=== PATIENT | female | born 1950 | race Caucasian/White ===

== ENCOUNTER 2017-07-16 11:44 | Emergency (ER) | payer MEDICARE, OTHER ==
[~2017-07-16] VITALS: Ht 157.5 cm; Wt 70.8 kg
[2017-07-16] MEDS ORDERED: IPRATRPIUM/ALBUTEROL 0.5/2.5MG 3 ML NEBU. ONE ×2 (11:48→11:53)
[2017-07-16] MEDS ORDERED: ALBUTEROL SULFATE 2.5 MG/3 ML NEBU. NEB ONE (12:00)
[2017-07-16 12:07] LABS: BASO # 0.1 x10^3/uL (0.0-0.2); BASO % 1 % (0-3); EOS % 1 % (0-3); HEMATOCRIT 49.9 % (36.0-47.0); LYMPH # 1.5 x10^3/uL (1.0-4.8); LYMPH % 19 % (24-48); MEAN CORPUSCULAR HEMOGLOBIN 33 pg (25-35); MEAN CORPUSCULAR HGB CONC 34 g/dL (31-37); MEAN CORPUSCULAR VOLUME 95 fL (79-100); MONO # 0.9 x10^3/uL (0.0-1.1); MONO % 10 % (0-9); NEUT # 5.7 x10^3uL (1.8-7.7); NEUT % 70 % (31-73); PLATELET COUNT 194 x10^3/uL (140-400); RED BLOOD COUNT 5.24 x10^6/uL (3.50-5.40); WHITE BLOOD COUNT 8.2 x10^3/uL (4.0-11.0)
[2017-07-16 12:16] LABS: CALCIUM 9.2 mg/dL (8.5-10.1); CREATININE 0.9 mg/dL (0.6-1.0); GFR 62.8
[2017-07-16] MEDS ORDERED: methylPREDNISolone SOD SUCC PF 40 MG/ML VIAL. IV ONE (12:20)
--- NOTE | 2017-07-16 12:38 | RAD ---
AP chest. History: Short of breath AP view was taken of the chest. There is a vessel versus a small nodule in the suprahilar lung on the right which is a slight change compared to the old study. Close interval follow-up film would be of benefit or CT. Lungs are clear. Heart is normal in size. There is no pleural effusion. Impression: 1. Possible superhilar nodule on the right, follow-up study or CT could be of benefit. 2. No infiltrates.
[2017-07-16] MEDS ORDERED: IV NORMAL SALINE 1,000ML 1,000 ML IV ONE (12:45)
[2017-07-16] MEDS ORDERED: IV NORMAL SALINE 50ML 50 ML ONE (12:55)
[2017-07-16] MEDS ORDERED: cefTRIAXone SODIUM 1 GM VIAL IV ONE (12:55)
[2017-07-16 13:01] LABS: BGAS PH 7.38 (7.35-7.45)
--- NOTE | 2017-07-16 13:17 | PHYS DOC ---
Past History Past Medical History: No Pertinent History Past Surgical History: No Surgical History Additional Smoking Information: Patient smoke 1 pack + a day Alcohol Use: None Drug Use: None Adult General Chief Complaint Chief Complaint: SHORTNESS OF BREATH HPI HPI Patient is a 67 year old F who presents with worsening shortness of breath over the past 2-3 weeks with significant worsening over the past 2 days. Luz is a daily smoker and does use inhalers on a regular basis. She has been using her rescue inhaler 3-4 times daily over the past 2 days and feels that her symptoms are progressively worsening. She denies pain at this time. She denies pain with any activity. She does feel her symptoms are significantly worse with minimal exertion. She denies swelling or weight gain. She has no history of heart failure. Review of Systems Review of Systems Constitutional: Denies fever or chills [] Eyes: Denies change in visual acuity, redness, or eye pain [] HENT: Denies nasal congestion or sore throat [] Respiratory: Negative except history of present illness Cardiovascular: No additional information not addressed in HPI [] GI: Denies abdominal pain, nausea, vomiting, bloody stools or diarrhea [] : Denies dysuria or hematuria [] Musculoskeletal: Denies back pain or joint pain [] Integument: Denies rash or skin lesions [] Neurologic: Denies headache, focal weakness or sensory changes [] Endocrine: Denies polyuria or polydipsia [] All other systems were reviewed and found to be within normal limits, except as documented in this note. Family History Family History No pertinent family medical history reported Current Medications Current Medications Current Medications Medications (Trade) Dose Ordered Sig/Ian Start Time Stop Time Status Last Admin Dose Admin Albuterol Sulfate (Ventolin) 7.5 mg 1X ONCE 07/16/17 12:00 07/16/17 12:04 DC Albuterol/ Ipratropium (Duoneb) 3 ml STK-MED ONCE 07/16/17 11:53 07/16/17 11:54 DC Ceftriaxone Sodium 1 gm/ Sodium Chloride 50 ml @ 100 mls/hr 1X ONCE 07/16/17 13:00 07/16/17 13:29 07/16/17 13:00 100 MLS/HR Ceftriaxone Sodium (Rocephin) 1 gm STK-MED ONCE 07/16/17 12:55 07/16/17 12:56 DC Methylprednisolone Sodium Succinate (SOLU-Medrol 40MG VIAL) 80 mg 1X ONCE 07/16/17 12:20 07/16/17 12:21 DC 07/16/17 12:14 80 MG Sodium Chloride 50 ml @ As Directed STK-MED ONCE 07/16/17 12:55 07/16/17 12:56 DC Allergies Allergies Allergies Coded Allergies Type Severity Reaction Last Updated Verified No Known Drug Allergies 07/16/17 No Physical Exam Physical Exam Constitutional: Well developed, well nourished, moderate distress noted ill- appearing HENT: Normocephalic, atraumatic, Eyes: EOMI, conjunctiva normal, no discharge. [] Neck: Normal range of motion, no tenderness, supple, no stridor. [] Cardiovascular:Heart rate regular rhythm, Lungs & Thorax: Moderate wheezing noted bilaterally. Tachypnea with moderate increased work of breathing, moderate retractions noted Abdomen: Bowel sounds normal, soft, no tenderness, no masses, no pulsatile masses. [] Skin: Warm, dry, no erythema, no rash. [] Back: No tenderness, no CVA tenderness. [] Extremities: No tenderness, no cyanosis, no clubbing, ROM intact, no edema. [] Neurologic: Alert and oriented X 3, normal motor function, normal sensory function, no focal deficits noted. [] Psychologic: Affect normal, judgement normal, mood normal. [] Current Patient Data Vital Signs Vital Signs Date Time Temp Pulse Resp B/P (MAP) Pulse Ox O2 Delivery O2 Flow Rate FiO2 07/16/17 14:24 98 173/85 07/16/17 14:00 114 16 181/96 (124) 98 BiPAP/CPAP 07/16/17 13:52 124 171/98 07/16/17 13:30 146 20 171/98 (122) 97 07/16/17 13:00 120 18 131/70 (90) 90 NonRebreather Mask 07/16/17 12:30 99.3 120 16 148/88 (108) 90 Room Air 07/16/17 11:59 93 Nasal Cannula 2.0 07/16/17 11:52 84 Room Air Vital Signs Date Time Temp Pulse Resp B/P (MAP) Pulse Ox O2 Delivery O2 Flow Rate FiO2 07/16/17 12:30 99.3 120 16 148/88 (108) 90 Room Air 07/16/17 11:59 2.0 Lab Results Laboratory Tests Test 07/16/17 11:55 07/16/17 12:35 White Blood Count 8.2 x10^3/uL (4.0-11.0) Red Blood Count 5.24 x10^6/uL (3.50-5.40) Hemoglobin 17.0 g/dL (12.0-15.5) H Hematocrit 49.9 % (36.0-47.0) H Mean Corpuscular Volume 95 fL (79-100) Mean Corpuscular Hemoglobin 33 pg (25-35) Mean Corpuscular Hemoglobin Concent 34 g/dL (31-37) Red Cell Distribution Width 13.0 % (11.5-14.5) Platelet Count 194 x10^3/uL (140-400) Neutrophils (%) (Auto) 70 % (31-73) Lymphocytes (%) (Auto) 19 % (24-48) L Monocytes (%) (Auto) 10 % (0-9) H Eosinophils (%) (Auto) 1 % (0-3) Basophils (%) (Auto) 1 % (0-3) Neutrophils # (Auto) 5.7 x10^3uL (1.8-7.7) Lymphocytes # (Auto) 1.5 x10^3/uL (1.0-4.8) Monocytes # (Auto) 0.9 x10^3/uL (0.0-1.1) Eosinophils # (Auto) 0.0 x10^3/uL (0.0-0.7) Basophils # (Auto) 0.1 x10^3/uL (0.0-0.2) Sodium Level 142 mmol/L (136-145) Potassium Level 4.0 mmol/L (3.5-5.1) Chloride Level 103 mmol/L (98-107) Carbon Dioxide Level 29 mmol/L (21-32) Anion Gap 10 (6-14) Blood Urea Nitrogen 6 mg/dL (7-20) L Creatinine 0.9 mg/dL (0.6-1.0) Estimated GFR (Cockcroft-Gault) 62.8 Glucose Level 139 mg/dL (70-99) H Calcium Level 9.2 mg/dL (8.5-10.1) Blood pH 7.38 (7.35-7.45) Blood Gas PCO2 35 mmHg (35-45) Blood Gas PO2 46 mmHg (80-100) *L Blood Gas HCO3 21 mmol/L (22-26) L Arterial Bld O2 Saturation (Calc) 81 % (92-99) L FiO2 21 % EKG EKG [] Radiology/Procedures Radiology/Procedures Chest x-ray Impressions: No noted infiltrate. Possible perihilar lymph node that may be correlated with CT scan. Course & Med Decision Making Course & Med Decision Making Pertinent Labs and Imaging studies reviewed. (See chart for details) Critical care time 60 minutes Luz's condition acutely worsened. She became tachycardic in the 150s and hypertensive. Her work of breathing significantly increased. She was placed on BiPAP and given metoprolol 5 mg IV. Her work of breathing mildly decreased however she became moderately fatigued. Her blood pressure and tachycardia improved but remained in the 130s heart rate and she remained hypertensive. She is given a second dose of IV metoprolol. Her symptoms continued to improve. She remained responsive. GCS 14. Dr. Lawrence at [facility] was contacted by phone and did accept her care for transfer. Pulmonology was contacted by phone. No additional recommendations were given. She was transferred in stable condition Dragon Disclaimer Dragon Disclaimer This electronic medical record was generated, in whole or in part, using a voice recognition dictation system. Departure Departure: Impression: Primary Impression: Acute respiratory failure with hypoxia and hypercarbia Additional Impression: COPD exacerbation Disposition: ADMITTED INPATIENT Condition: STABLE Referrals: LUZ SWEENEY (PCP) Problem Qualifiers ABDIEL FELICIANO MD Jul 16, 2017 13:17
[2017-07-16] MEDS ORDERED: ONDANSETRON PF 4 MG/2 ML VIAL. ONE (13:57)
[2017-07-16] MEDS ORDERED: METOPROLOL TARTRATE 5 MG/5 ML VIAL. IV ONE ×2 (14:00→14:30)
[2017-07-16] MEDS ORDERED: MAGNESIUM SULFATE 1GM 100 ML IV ONE (14:00)
[2017-07-16 14:24] VITALS: BP 173/85
[2017-07-16 15:24] LABS: INFLUENZA A PATIENT NEGATIVE (NEGATIVE); INFLUENZA B PATIENT NEGATIVE (NEGATIVE)
--- NOTE | 2017-07-16 16:06 | EKG ---
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
== END 2017-07-16 14:00 | disposition home or self-care (01) ==
LOC: ER 11:44
DX: J44.1 Chronic obstructive pulmonary disease with (acute) exacerbation (principal); J96.01 Acute respiratory failure with hypoxia; J96.02 Acute respiratory failure with hypercapnia; F17.210 Nicotine dependence, cigarettes, uncomplicated
CPT/HCPCS: 36415; 36600; 71010; 80048; 82803; 83605; 83735; 85025; 85379; 87040; 87804; 93005; 94640; 94660; 96365; 96368; 96375; 96376; 99291; J0696; J2920; J3475; J3490; J7030

== ENCOUNTER 2017-08-22 09:52 | Emergency (ER) | payer MEDICARE, OTHER ==
[~2017-08-22] VITALS: Ht 157.5 cm; Wt 67.1 kg
[2017-08-22] MEDS ORDERED: IPRATRPIUM/ALBUTEROL 0.5/2.5MG 3 ML NEBU. NEB ONE (11:00)
[2017-08-22] MEDS ORDERED: methylPREDNISolone SOD SUCC PF 125 MG/2 ML VIAL. IV ONE (11:00)
[2017-08-22 11:03] LABS: BASO % 1 % (0-3); EOS # 0.3 x10^3/uL (0.0-0.7); EOS % 5 % (0-3); HEMATOCRIT 35.6 % (36.0-47.0); HEMOGLOBIN 12.1 g/dL (12.0-15.5); LYMPH # 1.6 x10^3/uL (1.0-4.8); LYMPH % 31 % (24-48); MEAN CORPUSCULAR HEMOGLOBIN 32 pg (25-35); MEAN CORPUSCULAR HGB CONC 34 g/dL (31-37); MEAN CORPUSCULAR VOLUME 94 fL (79-100); MONO # 0.5 x10^3/uL (0.0-1.1); MONO % 9 % (0-9); NEUT # 2.8 x10^3uL (1.8-7.7); NEUT % 55 % (31-73); PLATELET COUNT 129 x10^3/uL (140-400); RED BLOOD COUNT 3.77 x10^6/uL (3.50-5.40); RED CELL DISTRIBUTION WIDTH 14.3 % (11.5-14.5); WHITE BLOOD COUNT 5.2 x10^3/uL (4.0-11.0)
--- NOTE | 2017-08-22 11:04 | RAD ---
2 views of the Chest 08/22/2017 12:37 PM Indication: Dizziness. Sleepiness. Upper respiratory tract infection. Comparison: Chest radiograph July 16, 2017 Findings: There is no focal consolidation or infiltrate identified. There is no effusion or pneumothorax. The cardiomediastinal silhouette and pulmonary vasculature are within normal limits. No osseous abnormality is identified. Impression: No evidence of acute cardiopulmonary process.
--- NOTE | 2017-08-22 11:11 | PHYS DOC ---
General Chief Complaint: DIZZY/LIGHT HEADED Stated Complaint: DIZZINESS Time Seen by MD: 10:13 Problems: History of Present Illness Initial Comments Patient is a 67-year-old female brought to the ED by her spouse with generalized weakness and lightheadedness. Patient states that she was discharged home 4 days ago after a 35 day hospitalization for respiratory arrest spending a great deal of time in the ICU on a ventilator. She states that she has not been very active since hospital discharge, and today she's felt some mild chills and she has felt shaky and lightheaded when ambulating very long. She denies any chest pain or shortness of breath no headache or focal neurologic deficit and denies any focal pain complaints. ED vitals: 98, 78, 18, 130/75, 97% room air Timing/Duration: 24 hours Severity: mild Modifying Factors: worse with movement, improves with rest Associated Symptoms: other Allergies: Coded Allergies: No Known Drug Allergies (Unverified , 07/16/17) Orders, Labs, Meds EKG: Normal sinus rhythm 73 bpm, extensive baseline wander artifact due to tremors from nebulizer treatment, no ST segment elevation interpreted by me. PATIENT: ELIANA HOLLEY Emanuel ACCOUNT: [id number] : 1950 LOCATION: ER AGE: 67 SEX: F EXAM STATUS: REG ER ORD. PHYSICIAN: MARINA KRISHNAN DO REASON: dizzy PROCEDURE: CHEST PA & LATERAL 2 views of the Chest 08/22/2017 12:37 PM Indication: Dizziness. Sleepiness. Upper respiratory tract infection. Comparison: Chest radiograph July 16, 2017 Findings: There is no focal consolidation or infiltrate identified. There is no effusion or pneumothorax. The cardiomediastinal silhouette and pulmonary vasculature are within normal limits. No osseous abnormality is identified. Impression: No evidence of acute cardiopulmonary process. DICTATED AND SIGNED BY: MARLENI OMALLEY MD DATE: 08/22/17900 CC: ELIANA SWEENEY; MARINA KRISHNAN DO ~ Departure Time of Disposition: 13:27 Disposition: 01 HOME, SELF-CARE Diagnosis: generalized weakness, febrile illness Condition: GOOD Patient Instructions: Fever, Adult, Atsr-ll-Doow, Weakness, [id number] Additional Instructions: Please review the patient education materials given by ED staff. Aggressive hydration with Gatorade and water. Increased physical activity in small increments daily. Continue current medications. Follow-up with your doctor on as scheduled for recheck, be sure to take results from today's visit with you further evaluation. Return to ED with new or changing symptoms. MARINA KRISHNAN DO Aug 22, 2017 11:11
[2017-08-22 11:18] LABS: ALBUMIN 2.9 g/dL (3.4-5.0); ALBUMIN/GLOBULIN RATIO 0.9 (1.0-1.7); CALCIUM 8.7 mg/dL (8.5-10.1); CREATININE 1.1 mg/dL (0.6-1.0); GFR 49.8; POTASSIUM 3.6 mmol/L (3.5-5.1); TOTAL BILIRUBIN 0.6 mg/dL (0.2-1.0); TOTAL PROTEIN 6.2 g/dL (6.4-8.2)
[2017-08-22 11:19] LABS: INFLUENZA A PATIENT NEGATIVE (NEGATIVE); INFLUENZA B PATIENT NEGATIVE (NEGATIVE)
[2017-08-22 11:43] LABS: % BANDS 7 % (0-9); % BASOS 1 % (0-3); % EOS 4 % (0-5); % LYMPHS 30 % (24-48); % METAS 2 % (0-0); % MONOS 6 % (0-10); % SEGS 50 % (35-66)
[2017-08-22 11:44] LABS: ANISOCYTOSIS SLIGHT; PLT ESTIMATE DECREASED (ADEQUATE); POLYCHROMASIA SLIGHT
[2017-08-22 12:34] LABS: BILIRUBIN,URINE NEG (NEG); CLARITY,URINE HAZY; COLOR,URINE AMBER; GLUCOSE,URINE NEG (NEG)
[2017-08-22 12:35] LABS: BACTERIA,URINE 0 /HPF (0-FEW); HYALINE CASTS, URINE OCC /HPF; NITRITE,URINE NEG (NEG); RBC,URINE RARE /HPF (0-2); SQUAMOUS EPITHELIAL CELL,UR OCC /LPF; UROBILINOGEN,URINE 0.2 mg/dL (0.2 mg/dL); WBC,URINE RARE /HPF (0-4)
[2017-08-22 13:43] VITALS: BP 125/56
--- NOTE | 2017-08-22 14:01 | EKG ---
[address] [address] Test Date: 2017-08-22 Test Time: 11:22:19 Pat Name: ELIANA HOLLEY Department: Room: Gender: F Lapel Padder: : 1950 Requested By: MARINA KRISHNAN Order Number: [id number] Reading MD: Jarod Moreno Measurements Intervals [place] Rate: 73 P: 77 MT: 150 QRS: 12 QRSD: 64 T: 67 QT: 400 QTc: 444 Interpretive Statements SINUS RHYTHM QRS(T) CONTOUR ABNORMALITY CONSIDER ANTEROSEPTAL MYOCARDIAL DAMAGE ST & T ABNORMALITY, CONSIDER HIGH LATERAL ISCHEMIA OR LEFT VENTRICULAR STRAIN ABNORMAL ECG Electronically Signed On 08-22-2017 16:50:01 SORT OPERATIONS SUPERVISOR by Jarod Moreno
== END 2017-08-22 13:44 | disposition home or self-care (01) ==
LOC: ER 09:52
DX: R53.1 Weakness (principal); R50.9 Fever, unspecified; R42 Dizziness and giddiness
CPT/HCPCS: 36415; 71046; 80053; 81001; 82550; 83880; 84484; 85007; 85025; 85610; 85730; 87804; 93005; 94640; 96374; 99285; J2930; J7620

== ENCOUNTER 2021-11-06 05:07 | Inpatient (IN) | payer MEDICARE, OTHER ==
[~2021-11-06] VITALS: Ht 165.1 cm; Wt 66.8 kg
--- NOTE | 2021-11-06 05:09 | PHYS DOC ---
Past History Past Medical History: No Pertinent History, COPD, Pneumonia (MARIA ALEJANDRA CHE MD) Past Surgical History: No Surgical History (MARIA ALEJANDRA CHE MD) Alcohol Use: None Drug Use: None (MARIA ALEJANDRA CHE MD) General Adult HPI: HPI: ".. I just got sick yesterday.. fever... coughing up stuff.. chills.. It feels like pneumonia.. but I do still smoke.. and had COPD... I did have bad pneumonia.. in 2018... got intubated and in hospital 35 days.." Patient is a 71 year old female who presents with above hx and complaints of dyspnea, fever, chills, productive cough, malaise, arthralgia, myalgia. Patient has completed COVID vaccination and flu vaccination as well as Pneumovax. Patient denies any recent travel. Patient does not normally require oxygen and has no home oxygen. Patient has history of significant past episodes of COPD. Pneumonia quired intubation and prolonged hospital stay in 2018. Patient still does smoke. Patient has approximately [id number]-khve smoking history. Pt. Follows with Dr. Sweeney. (MARIA ALEJANDRA CHE MD) Review of Systems: Review of Systems: Constitutional: Complains of fever or chills Eyes: Denies change in visual acuity HENT: Complains of nasal congestion and sore throat Respiratory: Complains of productive cough and shortness of breath Cardiovascular: Denies chest pain or edema GI: Denies abdominal pain, nausea, vomiting, bloody stools or diarrhea : Denies dysuria Musculoskeletal: Complains of myalgia and arthralgia Integument: Denies rash Neurologic: Denies headache, focal weakness or sensory changes Endocrine: Denies polyuria or polydipsia Lymphatic: Denies swollen glands Psychiatric: Denies depression or anxiety (MARIA ALEJANDRA CHE MD) Family History: Family History: Noncontributory to presentation (MARIA ALEJANDRA CHE MD) Current Medications: Current Meds: See nursing for home meds (MARIA ALEJANDRA CHE MD) Allergies: Allergies: Allergies Coded Allergies Type Severity Reaction Last Updated Verified No Known Drug Allergies 07/16/17 No (MARIA ALEJANDRA CHE MD) Physical Exam: PE: Constitutional: Moderate acute distress, non-toxic appearance. [] HENT: Normocephalic, atraumatic, bilateral external ears normal, oropharynx moist, no oral exudates, nose swollen turbinates clear rhinorrhea Eyes: PERRLA, EOMI, conjunctiva normal, no discharge. [] Neck: Normal range of motion, no tenderness, supple, no stridor. [] Cardiovascular: Tachycardia heart rate regular rhythm, no murmur [] Lungs & Thorax: Bilateral breath sounds equal apex scattered wheezes and some basilar crackles bilaterally on auscultation [] Abdomen: Bowel sounds normal, soft, no tenderness, no masses, no pulsatile masses. [] Skin: Warm, dry, no erythema, no rash. [] Back: No tenderness, no CVA tenderness. [] Extremities: No tenderness, no cyanosis, no clubbing, ROM intact, no edema. Cording appreciated Neurologic: Alert and oriented X 3, normal motor function, normal sensory function, no focal deficits noted. [] Psychologic: Affect anxious, judgement normal, mood normal. [] (MARIA ALEJANDRA CHE MD) EKG: EKG: [] (MARIA ALEJANDRA CHE MD) Radiology/Procedures: Radiology/Procedures: [][place] [address] IMAGING REPORT Signed PATIENT: ELIANA HOLLEY ACCOUNT: [id number] : 1950 LOCATION: ER AGE: 71 SEX: F EXAM STATUS: REG ER ORD. PHYSICIAN: MARIA ALEJANDRA CHE MD REASON: Dyspnea, HX COPD PROCEDURE: PORTABLE CHEST 1V EXAMINATION: XR CHEST 1V CLINICAL HISTORY: Dyspnea, history of COPD. EXAM DATE/TIME: 11/06/2021 5:14 AM COMPARISON: 08/22/2017 FINDINGS: Lines, Tubes, and Devices: None. Cardiomediastinal Silhouette: Normal heart size. Lungs and Pleura: No evidence of focal airspace consolidation or pleural effusion. Mild bibasilar subsegmental atelectasis and/or scarring. Pulmonary vasculature unremarkable. Bones and Soft Tissues: No acute osseous abnormality. IMPRESSION: No evidence of acute cardiopulmonary abnormality. Electronically signed by: Balbir Zhao DO (11/06/2021 5:44 AM) [facility] DICTATED AND SIGNED BY: BALBIR ZHAO DO DATE: 11/06/21 0543 CC: MARIA ALEJANDRA CHE MD; ELIANA SWEENEY ~ (MARIA ALEJANDRA CHE MD) Heart Score: C/O Chest Pain: N/A Risk Factors: Risk Factors: DM, Current or recent (<one month) smoker, HTN, HLP, family history of CAD, obesity. Risk Scores: Score 0 - 3: 2.5% MACE over next 6 weeks - Discharge Home Score 4 - 6: 20.3% MACE over next 6 weeks - Admit for Clinical Observation Score 7 - 10: 72.7% MACE over next 6 weeks - Early Invasive Strategies (MARIA ALEJANDRA CHE MD) C/O Chest Pain: N/A (ANALI SAMAYOA MD) Course & Med Decision Making: Course & Med Decision Making Pertinent Labs and Imaging studies reviewed. (See chart for details) Pt. endorsed to Dr. Samayoa at shift change. Labs pending. Impression: 1.Respiratory Failure- Hypoxia 2.Hx. of COPD 3.Fever and Chills. 4.Tobacco Use [] (MARIA ALEJANDRA CHE MD) Course & Med Decision Making Accepted patient care at shift change. Still requiring oxygen. Admit for COPD exacerbation. Patient amenable to plan, patient accepted by Dr. Blanton (ANALI SAMAYOA MD) Dragon Disclaimer: Dragon Disclaimer: This electronic medical record was generated, in whole or in part, using a voice recognition dictation system. (MARIA ALEJANDRA CHE MD) Departure Departure: Impression: Primary Impression: COPD exacerbation Disposition: 09 ADMITTED INPATIENT Admitting Physician: Jim Blanton (ANALI SAMAYOA MD) Condition: STABLE Referrals: ELIANA SWEENEY (PCP) Dragon Disclaimer This chart was dictated in whole or in part using Voice Recognition software in a busy, high-work load, and often noisy Emergency Department environment. It may contain unintended and wholly unrecognized errors or omissions. (MARIA ALEJANDRA CHE MD) Dragon Disclaimer This chart was dictated in whole or in part using Voice Recognition software in a busy, high-work load, and often noisy Emergency Department environment. It may contain unintended and wholly unrecognized errors or omissions. (MARIA ALEJANDRA CHE MD) MARIA ALEJANDRA CHE MD Nov 06, 2021 05:09 ANALI SAMAYOA MD Nov 06, 2021 08:02
[2021-11-06] MEDS ORDERED: IV RINGERS SOLUTION,LACTATED 1,000 ML IV SCH (05:15)
[2021-11-06] MEDS ORDERED: ALBUTEROL SULFATE 8GM INHALER. INH ONE (05:15)
[2021-11-06] MEDS ORDERED: AZITHROMYCIN 250 MG TABLET. PO ONE (05:30)
[2021-11-06] MEDS ORDERED: methylPREDNISolone SOD SUCC PF 125 MG/2 ML VIAL. IV ONE (05:30)
[2021-11-06] MEDS ORDERED: IV NORMAL SALINE 50ML 50 ML ONE (05:40)
[2021-11-06] MEDS ORDERED: cefTRIAXone SODIUM 1 GM VIAL ONE (05:41)
--- NOTE | 2021-11-06 05:46 | RAD ---
EXAMINATION: XR CHEST 1V CLINICAL HISTORY: Dyspnea, history of COPD. EXAM DATE/TIME: 11/06/2021 5:14 AM COMPARISON: 08/22/2017 FINDINGS: Lines, Tubes, and Devices: None. Cardiomediastinal Silhouette: Normal heart size. Lungs and Pleura: No evidence of focal airspace consolidation or pleural effusion. Mild bibasilar sub segmental atelectasis and/or scarring. Pulmonary vasculature unremarkable. Bones and Soft Tissues: No acute osseous abnormality. IMPRESSION: No evidence of acute cardiopulmonary abnormality. Electronically signed by: Balbir Haji DO (11/06/2021 5:44 AM) [facility]
[2021-11-06 05:57] LABS: BASO # 0.1 x10^3/uL (0.0-0.2); BASO % 1 % (0-3); EOS # 0.1 x10^3/uL (0.0-0.7); EOS % 1 % (0-3); HEMATOCRIT 43.5 % (36.0-47.0); HEMOGLOBIN 14.6 g/dL (12.0-15.5); LYMPH # 0.7 x10^3/uL (1.0-4.8); LYMPH % 8 % (24-48); MEAN CORPUSCULAR HEMOGLOBIN 32 pg (25-35); MEAN CORPUSCULAR HGB CONC 34 g/dL (31-37); MEAN CORPUSCULAR VOLUME 95 fL (79-100); MONO # 0.6 x10^3/uL (0.0-1.1); MONO % 7 % (0-9); NEUT # 7.3 x10^3uL (1.8-7.7); NEUT % 83 % (31-73); PLATELET COUNT 205 x10^3/uL (140-400); RED CELL DISTRIBUTION WIDTH 13.1 % (11.5-14.5); WHITE BLOOD COUNT 8.8 x10^3/uL (4.0-11.0)
[2021-11-06 06:05] LABS: CALCIUM 9.3 mg/dL (8.5-10.1); CREATININE 0.9 mg/dL (0.6-1.0); GFR 62.1; POTASSIUM 3.9 mmol/L (3.5-5.1)
[2021-11-06 06:17] LABS: ALBUMIN 3.6 g/dL (3.4-5.0); DIRECT BILIRUBIN 0.2 mg/dL (0.0-0.2); TOTAL BILIRUBIN 0.8 mg/dL (0.2-1.0); TOTAL PROTEIN 6.7 g/dL (6.4-8.2)
[2021-11-06 06:20] LABS: INFLUENZA A PATIENT NEGATIVE (NEGATIVE); INFLUENZA B PATIENT NEGATIVE (NEGATIVE)
[2021-11-06 07:12] LABS: BARBITURATES NEG (NEG); BENZODIAZEPINES NEG (NEG); CANNABINOIDS NEG (NEG); COCAINE NEG (NEG); METHADONE NEG (NEG); OPIATES NEG (NEG); PHENCYCLIDINE NEG (NEG)
[2021-11-06 07:17] LABS: AMPHETAMINE/METHAMPHETAMINE NEG (NEG)
[2021-11-06 07:19] LABS: BACTERIA,URINE FEW /HPF (0-FEW); CLARITY,URINE CLEAR; COLOR,URINE YELLOW; GLUCOSE,URINE NEG (NEG); NITRITE,URINE NEG (NEG); RBC,URINE RARE /HPF (0-2); SQUAMOUS EPITHELIAL CELL,UR OCC /LPF; UROBILINOGEN,URINE 0.2 mg/dL (0.2 mg/dL)
[2021-11-06] MEDS ORDERED: ONDANSETRON PF 4 MG/2 ML VIAL. IVP PRN (08:00)
[2021-11-06] MEDS ORDERED: MORPHINE SULFATE 2 MG/ML DISP.SYRIN. IVP PRN (08:00)
[2021-11-06] MEDS ORDERED: ACETAMINOPHEN 325 MG TABLET PO PRN (08:00)
[2021-11-06 11:00] VITALS: BP 108/50
--- NOTE | 2021-11-06 11:57 | HP ---
DATE OF SERVICE: 11/06/2021 ADMIT DATE: 11/06/2021 ATTENDING PHYSICIAN: Dr. Blanton. CHIEF COMPLAINT: Shortness of breath. HISTORY OF PRESENT ILLNESS: The patient is a 71-year-old female with a 1-day history of low-grade fevers, cough, congestion, some chills. She had an extensive workup in the ED. She has underlying COPD and unfortunately continues to smoke. Chest x-ray was actually quite clear. There is no influenza and coronavirus. She was given Solu-Medrol, antibiotics, oxygen saturation marginal. She is admitted with acute on chronic respiratory failure and exacerbation of chronic obstructive pulmonary disease. PAST MEDICAL HISTORY: Significant for an episode 4 years ago, which resulted in acute respiratory failure. She was evaluated for 9 days. She spent a total of 33 days in the hospital recovering. SOCIAL HISTORY: Unfortunately, she continues to smoke a pack a day, perhaps more sometimes. ALLERGIES: She has no known drug allergies. She is a nondrinker. FAMILY HISTORY: Her mom of leukemia at age 59. Dad of liver disease at age 80. He was a heavy drinker. She is , retired. REVIEW OF SYSTEMS: No recent COVID exposure. She has been vaccinated. No recent travel. All other systems reviewed and turned to be negative. CURRENT PRESCRIPTION MEDICATIONS: None PHYSICAL EXAMINATION: GENERAL: When I saw her, this is a pleasant female. VITAL SIGNS: Initial vital signs showed a blood pressure 100/57, pulse is 58 and regular. She was afebrile, oxygen saturation 96% on 4 liters by nasal cannula. HEENT: Head is without trauma. Pupils are reactive. Sclerae nonicteric. Oropharynx is clear. NECK: Supple. LUNGS: Diffuse wheezing bilaterally. CARDIOVASCULAR: Regular heart tones. No gallop. ABDOMEN: Soft. EXTREMITIES: Without edema. NEUROLOGIC: Focally intact. Speech is fluent. PERTINENT LABORATORY STUDIES: Chest x-ray was entirely clear. There is no decompensation. The hemoglobin is 14.6 g/dL, white count 8800. Electrolytes within normal range. Troponin was negative. ASSESSMENT: 1. This 71-year-old female has acute on chronic respiratory failure. 2. Hypoxemia, requiring supplemental oxygen. 3. Exacerbation of chronic obstructive pulmonary disease due to continued tobacco use. 4. History of respiratory failure 4 years ago. PLAN: 1. Admit to the inpatient unit. 2. Intravenous steroids. 3. Antibiotics. 4. Nebulizer therapy. 5. We will try to wean down supplemental oxygen. JESSICA DR: Raegan TID: [id number] CC: Yocasta Celaya
[2021-11-06] MEDS ORDERED: ALBUTEROL SULFATE 2.5 MG/3 ML NEBU. NEB PRN (12:00)
--- NOTE | 2021-11-06 13:23 | NUR ---
Nursing note PT was admitted to the floor from the ED. Admission questions asked and documented. Admission assessments done. Medication orders from Doctor put in. PT in bed, verbalized no breathing difficulties, call light within reach, bed low. Will continue to monitor.
[2021-11-06 14:00] LABS: BGAS PH 7.41 (7.35-7.45)
[2021-11-06] MEDS: methylPREDNISolone SOD SUCC PF 40 MG/ML VIAL. IV SCH ×2 (14:00→22:35)
[2021-11-06 15:49] VITALS: BP 102/60
--- NOTE | 2021-11-06 18:54 | EKG ---
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
[2021-11-06 19:15] VITALS: BP 104/53
[2021-11-06 23:28] VITALS: BP 110/58
[2021-11-07 05:43] VITALS: BP 118/55
[2021-11-07] MEDS: methylPREDNISolone SOD SUCC PF 40 MG/ML VIAL. IV SCH (06:20)
[2021-11-07 07:08] LABS: BASO % 0 % (0-3); EOS % 0 % (0-3); HEMATOCRIT 41.6 % (36.0-47.0); HEMOGLOBIN 13.6 g/dL (12.0-15.5); LYMPH # 0.8 x10^3/uL (1.0-4.8); LYMPH % 6 % (24-48); MEAN CORPUSCULAR HEMOGLOBIN 31 pg (25-35); MEAN CORPUSCULAR HGB CONC 33 g/dL (31-37); MEAN CORPUSCULAR VOLUME 96 fL (79-100); MONO # 0.3 x10^3/uL (0.0-1.1); MONO % 2 % (0-9); NEUT # 11.7 x10^3uL (1.8-7.7); NEUT % 91 % (31-73); PLATELET COUNT 194 x10^3/uL (140-400); RED BLOOD COUNT 4.32 x10^6/uL (3.50-5.40); RED CELL DISTRIBUTION WIDTH 13.2 % (11.5-14.5); WHITE BLOOD COUNT 12.8 x10^3/uL (4.0-11.0)
[2021-11-07 07:15] LABS: ALBUMIN 3.3 g/dL (3.4-5.0); ALBUMIN/GLOBULIN RATIO 1.1 (1.0-1.7); CALCIUM 9.2 mg/dL (8.5-10.1); CREATININE 1.1 mg/dL (0.6-1.0); GFR 49.2; POTASSIUM 3.9 mmol/L (3.5-5.1); TOTAL BILIRUBIN 0.4 mg/dL (0.2-1.0); TOTAL PROTEIN 6.4 g/dL (6.4-8.2)
--- NOTE | 2021-11-07 17:49 | DS ---
DATE OF DISCHARGE: 11/07/2021 ATTENDING PHYSICIAN: Dr. Blanton. FINAL DISCHARGE DIAGNOSES: 1. Acute exacerbation of chronic obstructive pulmonary disease. 2. Acute on chronic respiratory failure. 3. Hypoxemia, resolved. 4. Continued tobacco addiction. 5. Essential hypertension. 6. Underlying depression with anxiety. 7. History of restless leg syndrome. HISTORY AND PHYSICAL: The patient is a 71-year-old female admitted through the ED with increasing shortness of breath. She had a negative workup. Her chest x-ray was entirely clear. Influenza A and B and coronavirus were negative. She was given Solu-Medrol and albuterol and admitted overnight for observation. She has marginal oxygen saturations. PHYSICAL EXAMINATION: Please see the dictated note. PERTINENT LABORATORY AND X-RAY STUDIES: Chest x-ray was clear. Serology negative for influenza A, B and coronavirus. Hemoglobin was 14.6 g/dL with a white count of 8800. Chemistry panel: BUN, creatinine, cardiac enzymes are all within normal range. COURSE IN THE HOSPITAL: The patient was admitted. She was started on scheduled intravenous Solu-Medrol, nebulizer therapy and continuation of her home meds. She did well. Supplemental oxygen was weaned off and she had adequate saturation on room air. By the next hospital day, I recommended that she is stable for going home. I suggested prednisone 40 mg p.o. daily for 5 days and Keflex 500 mg p.o. t.i.d. She will continue her antihypertensive, Klonopin, and cholesterol medication. She is also on Celexa, doses are unchanged. She will followup with Dr. Yocasta Coto as scheduled. She was discharged then from our hospital in stable condition with explicit drug and followup care. CELESTE JACK: Raegan TID: [id number] CC: YOCASTA COTO MD
== END 2021-11-07 10:54 | disposition home or self-care (01) | DRG 189 ==
LOC: ER 05:07 → ER HOLD 07:58 → 1 SOUTH 10:55
PROVIDERS: ADMIT Hospitalist; ATTEND Hospitalist
DX: J96.21 Acute and chronic respiratory failure with hypoxia (principal); J44.1 Chronic obstructive pulmonary disease with (acute) exacerbation; I10 Essential (primary) hypertension; G25.81 Restless legs syndrome; F32.A Depression, unspecified; F41.9 Anxiety disorder, unspecified; F17.210 Nicotine dependence, cigarettes, uncomplicated; R53.81 Other malaise; Z20.822 Contact with and (suspected) exposure to COVID-19; Z80.6 Family history of leukemia
CPT/HCPCS: 36415; 71045; 80048; 80053; 80076; 80307; 81001; 82550; 82803; 83690; 83735; 83880; 84443; 84484; 85025; 85379; 85610; 85730; 87040; 87428; 93005; 96365; 96375; 96376; J0696; J2920; J2930; J7120; U0003; 99285-25